=== PATIENT | female | born 1965 | race Caucasian/White ===

== ENCOUNTER → 2016-11-28 | Outpatient (CLI) | payer OTHER ==
[~2016-11-28] MED LIST: CLARITIN10 M2 PO; ESCITALOPRAM OX10 MG PO; LEVOTHYROXINE75 MCG PO; METOPROLOL SUC100 MG PO; SIMVASTATIN40 MG PO; TIZANIDINE HCL2 MG PO; VICTOZA 1818 MG/3 ML SC; VITAMIN D250000 UNIT PO; WELLBUTRIN XL150 MG PO
== END ==
LOC: MAMO 09:00
DX: R92.8 Other abnormal and inconclusive findings on diagnostic imaging of breast (principal); R80.3 Bence Jones proteinuria
CPT/HCPCS: G0204

== ENCOUNTER → 2020-08-30 | Outpatient (CLI) | payer MEDICARE, OTHER | LOC: KOH-I 16:14 | DX: M25.551 Pain in right hip (principal) | CPT/HCPCS: 72170; 73502 ==

== ENCOUNTER → 2020-09-21 | Outpatient (CLI) | payer MEDICARE, OTHER | LOC: MAMO 09:25 | DX: Z53.9 Procedure and treatment not carried out, unspecified reason (principal) ==

== ENCOUNTER → 2021-06-28 | Outpatient (CLI) | payer MEDICARE ==
[2021-06-28 14:45] LABS: HEMOGLOBIN 15.2 gm/dl (12.3-15.3); RED BLOOD COUNT 5.08 M/UL (4.00-5.10)
[2021-06-29 09:11] LABS: VITAMIN D, 25-HYDROXY 20.1 ng/mL (30.0-100.0)
[2021-06-29 10:11] LABS: ALKALINE PHOSPHATASE, S 72 IU/L (44-121); ALT (SGPT) 20 IU/L (0-32); AST (SGOT) 25 IU/L (0-40); BILIRUBIN, TOTAL 0.6 mg/dL (0.0-1.2); BUN 6 mg/dL (6-24); BUN/CREATININE RATIO 8 (9-23); CALCIUM, SERUM 9.3 mg/dL (8.7-10.2); CARBON DIOXIDE, TOTAL 20 mmol/L (20-29); CHLORIDE, SERUM 105 mmol/L (96-106); CHOLESTEROL, TOTAL 96 mg/dL (100-199); CREATININE, SERUM 0.72 mg/dL (0.57-1.00); EGFR IF AFRICN AM 107 (>59); EGFR IF NONAFRICN AM 93 (>59); GLOBULIN, TOTAL 2.4 g/dL (1.5-4.5); GLUCOSE, SERUM 131 mg/dL (65-99); HDL CHOLESTEROL 35 mg/dL (>39); LDL CHOLESTEROL CALC 28 mg/dL (0-99); LDL/HDL RATIO 0.8 ratio (0.0-3.2); POTASSIUM, SERUM 4.2 mmol/L (3.5-5.2); PROTEIN, TOTAL, SERUM 7.1 g/dL (6.0-8.5); SODIUM, SERUM 142 mmol/L (134-144); T. CHOL/HDL RATIO 2.7 ratio (0.0-4.4); TRIGLYCERIDES 213 mg/dL (0-149)
== END ==
LOC: MAMO 06-08 13:00
PROVIDERS: Family Medicine
DX: Z12.31 Encounter for screening mammogram for malignant neoplasm of breast (principal); E78.2 Mixed hyperlipidemia; E03.9 Hypothyroidism, unspecified; E55.9 Vitamin D deficiency, unspecified; Z79.899 Other long term (current) drug therapy
CPT/HCPCS: 36415; 77063; 77067; 80053; 80061; 82607; 84439; 84443; 85027